=== PATIENT | male | born 1990 | race Two or more races ===

== ENCOUNTER 2025-10-09 16:58 | Emergency (ER) | payer OTHER, MEDICAID ==
[~2025-10-09] VITALS: Ht 172.7 cm; Wt 158.8 kg
[2025-10-09 17:21] VITALS: TEMP 98.6
[2025-10-09 17:55] VITALS: BP 155/97; O2SAT 100
== END 2025-10-09 17:55 | disposition home or self-care (01) ==
LOC: ER 17:27
DX: F41.9 Anxiety disorder, unspecified (principal)